=== PATIENT | female | born 1965 | race Caucasian/White ===

== ENCOUNTER 2016-09-22 11:04 | Emergency (ER) | payer OTHER ==
[2016-09-22 11:11] VITALS: BP 147/96; PULSE 97; TEMP 99.1; BMI 29.2
--- NOTE | 2016-09-22 11:47 | PDOC ---
History of Present Illness - General Chief Complaint: Cold Symptoms Stated Complaint: COUGH Time Seen by Provider: 09/22/16 11:11 - History of Present Illness Initial Comments: 09/22/16 12:35 Chief complaint: Nasal congestion and nonproductive cough History of present illness: URI symptoms for several days after similar illness of her . Review of systems: No fever/chills, chest pain, shortness of breath, abdominal pain, nausea, vomiting, diarrhea, urinary tract symptoms, vaginal bleeding or discharge. Past medical history: Reviewed and noncontributory. No respiratory disease including asthma. 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 Family history: Reviewed and noncontributory, including cardiovascular and pulmonary disease Physical exam: Alert and oriented well-developed well-nourished no acute distress cheerful and cooperative Afebrile, vital signs normal including normal respiratory rate and oxygen saturation. No tachypnea or dyspnea HEENT shows only mild nasal congestion with watery discharge. Ears and throat are clear Neck supple without bruit mass or nodes Chest clear with full breath sounds throughout bilaterally. No wheezes rales or rhonchi. No tachypnea or dyspnea. Respiratory rate 16 and unlabored. O2 saturation 100% CV regular without murmur rub or gallop Abdomen benign Skin clear, no rash, adequate turgor and what mucous membranes Extremities no CCE Neurological intact. Gait stable and unimpaired Impression: Probable viral URI, postnasal drip, resulting in cough. Chest is clear. Possibly aggravated by seasonal ALLERGIES Plan: Rest, symptomatic treatment, recheck immediately if there is fever chest pain or shortness of breath. Otherwise follow-up with primary physician if no improvement 3-5 days. Fully ambulatory and in no pain or other distress upon discharge to follow-up as directed Past History - Past Medical History Allergies/Adverse Reactions: Allergies Allergy/AdvReac Type Severity Reaction Status Date / Time cephalexin monohydrate AdvReac Hives Verified 09/22/16 11:06 [From Keflex] Penicillins AdvReac Hives Verified 09/22/16 11:06 Home Medications: Ambulatory Orders Budesonide [Rhinocort Allergy] 2 sprays NS DAILY #1 spray.pump 09/22/16 Fexofenadine HCl [Renee Allergy] 60 mg PO BID #20 tablet 09/22/16 Guaifenesin [Mucinex] 600 mg PO BID #20 tab.er.12h 09/22/16 Losartan/Hydrochlorothiazide [Hyzaar 100-12.5 Tablet] 1 each PO DAILY 09/22/16 HTN: Yes - Psycho/Social/Smoking Cessation Hx Anxiety: No Suicidal Ideation: No Smoking History: Never smoked Information on smoking cessation initiated: No Hx Alcohol Use: Yes (WINE 1 GLASS ON WEEK ENDS.) Drug/Substance Use Hx: No *Physical Exam - Vital Signs Last Vital Signs Temp Pulse Resp BP Pulse Ox 99.1 F 97 H 18 147/96 98 09/22/16 11:08 09/22/16 11:08 09/22/16 11:08 09/22/16 11:08 09/22/16 11:08 *DC/Admit/Observation/Transfer Diagnosis at time of Disposition: Viral upper respiratory tract infection with cough - Discharge Dispostion Disposition: HOME Condition at time of disposition: Stable Admit: No - Prescriptions Prescriptions: Fexofenadine HCl [Renee Allergy] 60 mg PO BID #20 tablet Guaifenesin [Mucinex] 600 mg PO BID #20 tab.er.12h Budesonide [Rhinocort Allergy] 2 sprays NS DAILY #1 spray.pump - Patient Instructions Printed Discharge Instructions: DI for Viral Upper Respiratory Infection -- Adult - Post Discharge Activity Work/School Note: Back to Work
== END 2016-09-22 12:10 | disposition home or self-care (01) ==
LOC: FER 11:04
DX: J06.9 Acute upper respiratory infection, unspecified (principal); B34.9 Viral infection, unspecified; R05 Cough; I10 Essential (primary) hypertension; J45.909 Unspecified asthma, uncomplicated
CPT/HCPCS: 99281-25

== ENCOUNTER 2019-05-11 12:05 | Emergency (ER) | payer OTHER ==
[2019-05-11 12:23] VITALS: TEMP 98.6; BMI 30.1
[2019-05-11 12:52] LABS: BASO % 0.9 % (0-2.0); EOS % 2.2 % (0-4.5); HEMATOCRIT 40.2 % (32.4-45.2); HEMOGLOBIN 13.2 GM/dl (10.7-15.3); LYMPH % 23.1 % (8-40); MCH 30.3 pg (25.7-33.7); MCHC 32.9 g/dl (32.0-36.0); MONO % 9.2 % (3.8-10.2); NEUT % 64.6 % (42.8-82.8); PLATELET COUNT 235 K/MM3 (134-434); RBC 4.37 M/mm3 (3.60-5.2); RDW 12.3 % (11.6-15.6); WHITE BLOOD COUNT 5.5 K/mm3 (4.0-10.8)
[2019-05-11 12:58] LABS: ALBUMIN 3.9 g/dl (3.4-5.0); BILIRUBIN,TOTAL 1.3 mg/dl (0.2-1); CALCIUM 9.2 mg/dl (8.5-10); CREATININE 0.6 mg/dl (0.55-1.3); POTASSIUM 3.3 mmol/L (3.5-5.1); TOT PROT 6.9 g/dl (6.4-8.2)
[2019-05-11 14:25] VITALS: BP 142/94; PULSE 67
--- NOTE | 2019-05-11 17:00 | PDOC ---
Documentation entered by Temo Garza SCRIBE, acting as scribe for Nestor Mota MD. Nestor Mota MD: This documentation has been prepared by the renettaeGreg Aiswarya, SCRIBE, under my direction and personally reviewed by me in its entirety. I confirm that the documentation accurately reflects all work, treatment, procedures, and medical decision making performed by me. History of Present Illness - General Chief Complaint: Pain Stated Complaint: LEFT CHEST PAIN Time Seen by Provider: 05/11/19 12:12 - History of Present Illness Initial Comments: 05/11/19 17:07 53 years old with past medical history significant for hypertension presents to the emergency department with 3 episodes of atypical chest discomfort 2 episodes last night nonexertional while at rest pressure-like left chest nonradiating no associated nausea diaphoresis radiation not sharp or tearing in nature non-exertional. One episode again this morning also at rest patient presents to the emergency department for further evaluation currently pain-free pain is slightly exacerbated by palpation and by leaning forward no recent fever chills shortness of breath nausea vomiting diarrhea abdominal pain leg pain or leg swelling no travel no sick contacts no history of DVT or blood clots no recent surgeries or cancer. Past History - Past Medical History Allergies/Adverse Reactions: Allergies Allergy/AdvReac Type Severity Reaction Status Date / Time cephalexin monohydrate AdvReac Hives Verified 09/22/16 11:06 [From Keflex] Penicillins AdvReac Hives Verified 09/22/16 11:06 Home Medications: Ambulatory Orders Losartan/Hydrochlorothiazide [Hyzaar 100-12.5 Tablet] 1 each PO DAILY 09/22/16 COPD: No HTN: Yes - Psycho Social/Smoking Cessation Hx Smoking History: Never smoked Information on smoking cessation initiated: No Hx Alcohol Use: Yes (SOCIAL) Drug/Substance Use Hx: No Review of Systems - Review of Systems Comments:: 05/11/19 17:08 ROS: A complete review of 10 out of 10 review of systems is taken and is negative apart from what is previously mentioned below and in the HPI. *Physical Exam - Vital Signs Last Vital Signs Temp Pulse Resp BP Pulse Ox 98.6 F 67 16 142/94 100 05/11/19 12:06 05/11/19 14:23 05/11/19 12:06 05/11/19 14:23 05/11/19 14:23 - Physical Exam 05/11/19 17:08 Vitals: Triage Vital signs reviewed General Appearance: No acute distress, well nourished well developed, Head: Atraumatic, Neck: Supple; no Nucal rigidity Chest Wall: Nontender Cardiac: Regular rate and rhythym, no murmurs, no rubs, no gallops, Lungs: Clear to auscultation bilateral, good air movement bilaterally, Abdomen: Soft, non distended, normal bowel sounds, non tender to palpation Extremities: Full range of motion to all extremities, no cyanosis, clubbing, or edema Skin: Warm and dry, no rashes or lesions, no rash, no petechiae Psych: Normal mood, normal affect Heart Score/ECG Review - History History: Slightly suspicious - Electrocardiogram EKG: Normal - Age Age: 45-65 - Risk Factors Risk Factors Heart Score: Yes Hx Hypertension, Yes Positive family hx of cardiac disease Based on the list above the patient has:: 1-2 risk factors - Troponin Troponin: </= normal limit - Score Heart Score - Total: 2 - ECG Impressions Comment:: 05/11/19 16:[address] elevations no T wave inversions Interpreted by me. ED Treatment Course - LABORATORY CBC & Chemistry Diagram: 05/11/19 12:30 05/11/19 12:30 - ADDITIONAL ORDERS Additional order review: Laboratory Results 05/11/19 05/11/19 05/11/19 15:30 12:30 12:30 Sodium 137 Potassium 3.3 L Chloride 105 Carbon Dioxide 26 Anion Gap 6 L BUN 17.0 Creatinine 0.6 Est GFR (CKD-EPI)AfAm 118.93 Est GFR (CKD-EPI)NonAf 102.61 Random Glucose 93 Calcium 9.2 Total Bilirubin 1.3 H AST 16 ALT 18 Alkaline Phosphatase 67 Troponin I < 0.03 < 0.03 Total Protein 6.9 Albumin 3.9 05/11/19 12:30 RBC 4.37 MCV 92.0 MCHC 32.9 RDW 12.3 MPV 9.0 Neutrophils % 64.6 Lymphocytes % 23.1 Monocytes % 9.2 Eosinophils % 2.2 Basophils % 0.9 - RADIOLOGY Radiology Studies Ordered: Category Date Time Status CHEST PA & LAT [RAD] Stat Radiology 05/11/19 12:24 Completed Medical Decision Making - Medical Decision Making 05/11/19 16:58 Well-appearing no apparent distress atypical nonexertional chest pain. Heart score 2 nonischemic EKG Given pain prior to arrival will keep for second 3-hour troponin Reevaluation patient is chest pain-free slightly reproducible on exam troponin negative x2 patient safe for outpatient follow-up. Findings, need for follow-up and strict return instructions discussed with patient. Discharge - Discharge Information Problems reviewed: No Clinical Impression/Diagnosis: Atypical chest pain - Admission No - Follow up/Referral Referrals: Rebeka Zafar [Primary Care Provider] - - Patient Discharge Instructions Patient Printed Discharge Instructions: DI for Atypical Chest Pain Additional Instructions: Follow-up with your doctor this week. Return to the emergency department for any severe worsening symptoms or for any concerns. - Post Discharge Activity
--- NOTE | 2019-05-12 23:25 | EKG ---
Test Reason : Blood Pressure : / mmHG Vent. Rate : 070 BPM Atrial Rate : 070 BPM P-R Int : 136 ms QRS Dur : 082 ms QT Int : 406 ms P-R-T Axes : 015 035 048 degrees QTc Int : 438 ms NORMAL SINUS RHYTHM NORMAL ECG NO PREVIOUS ECGS AVAILABLE Confirmed by JASIEL GURROLA MD ([id number]) on 05/12/2019 11:25:34 PM Referred By: CHOLO BRENNAN Confirmed By:JASIEL GURROLA MD
== END 2019-05-11 17:15 | disposition home or self-care (01) ==
LOC: FER 12:05
DX: R07.89 Other chest pain (principal); Z88.0 Allergy status to penicillin; Z88.8 Allergy status to other drugs, medicaments and biological substances; I10 Essential (primary) hypertension
CPT/HCPCS: 36415; 71046-TC-FY; 80053; 84484; 85025; 93005; 99284-25